=== PATIENT | female | born 1995 ===

== ENCOUNTER 2016-07-16 13:44 | Emergency (ER) | payer OTHER, SELFPAY ==
--- NOTE | 2016-07-16 14:09 | ED PDOC ---
HPI: General Adult Time Seen by Provider: 07/16/16 13:58 Chief Complaint (Nursing): Female Genitourinary Chief Complaint (Provider): vaginal spotting History Per: Patient History/Exam Limitations: no limitations Additional Complaint(s): 20yo 8 weeks female comes to the ED complaining of spotting since waking up this morning. No other complaints. No abdominal pain. PMD: [facility] Past Medical History Reviewed: Historical Data, Nursing Documentation, Vital Signs Vital Signs: Last Vital Signs Temp 98.2 F 07/16/16 17:45 Pulse 75 07/16/16 17:40 Resp 16 07/16/16 17:40 BP 122/68 07/16/16 17:40 Pulse Ox 100 07/16/16 17:40 - Medical History PMH: No Chronic Diseases - Surgical History Surgical History: No Surg Hx - Family History Family History: States: Unknown Family Hx - Allergies Allergies/Adverse Reactions: Allergies Allergy/AdvReac Type Severity Reaction Status Date / Time No Known Allergies Allergy Verified 07/16/16 13:55 Review of Systems ROS Statement: Except As Marked, All Systems Reviewed And Found Negative Gastrointestinal: Negative for: Abdominal Pain Genitourinary Female: Positive for: Vaginal Bleeding Physical Exam - Reviewed Nursing Documentation Reviewed: Yes Vital Signs Reviewed: Yes - Physical Exam Appears: Positive for: Well, Non-toxic, No Acute Distress Head Exam: Positive for: ATRAUMATIC, NORMAL INSPECTION, NORMOCEPHALIC Skin: Positive for: Warm, Dry Eye Exam: Positive for: EOMI, PERRL Cardiovascular/Chest: Positive for: Regular Rate, Rhythm Respiratory: Positive for: Normal Breath Sounds. Negative for: Rales, Rhonchi, Wheezing Gastrointestinal/Abdominal: Positive for: Normal Exam, Soft. Negative for: Tenderness Back: Negative for: L CVA Tenderness, R CVA Tenderness Extremity: Positive for: Normal ROM Neurologic/Psych: Positive for: Alert, Oriented - Laboratory Results Result Diagrams: 07/16/16 14:30 07/16/16 14:30 - ECG O2 Sat by Pulse Oximetry: 99 (RA) Pulse Ox Interpretation: Normal - CT Scan/US Pelvic ultrasound Other Rad Studies (CT/US): Radiology Report Reviewed (Live single intrauterine with estimated gestational age 8 weeks 1 day. heart rate 163 bpm. Advise an anomaly screen at 16-18 weeks gestational age.) Medical Decision Making Medical Decision Makin impression pelvic pain Plan: US OB 1st Trimester Labs reassess Disposition - Clinical Impression Clinical Impression: Threatened - Disposition [facility] Disposition: Routine/Home Disposition Time: 17:41 Condition: STABLE Instructions: Threatened Miscarriage (ED) Additional Comments - Additional Comments Additional Comments: Scribe Attestation: Documented by Jose Manuel Gorman acting as a scribe for Loretta Shabazz MD. Provider Scribe Attestation: All medical record entries made by the Scribe were at my direction and personally dictated by me. I have reviewed the chart and agree that the record accurately reflects my personal performance of the history, physical exam, medical decision making, and the department course for this patient. I have also personally directed, reviewed, and agree with the discharge instructions and disposition.
[2016-07-16 14:49] LABS: BASO % 0.6 % (0.0-2.0); EOS % 0.5 % (0.0-4.0); LYMPH # 1.7 K/uL (1.0-4.3); LYMPH % 21.1 % (20.0-40.0); MEAN CELL VOLUME 86.5 fl (81.0-99.0); MEAN CORPUSCULAR HEMOGLOBIN 28.7 pg (27.0-31.0); MEAN CORPUSCULAR HGB CONC 33.2 g/dL (33.0-37.0); MONO # 0.6 K/uL (0.0-0.8); MONO % 7.2 % (0.0-10.0); NEUT # 5.8 K/uL (1.8-7.0); NEUT % 70.6 % (50.0-75.0); RED CELL DISTRIBUTION WIDTH 14.2 % (11.5-14.5); WHITE BLOOD COUNT 8.2 K/uL (4.8-10.8)
[2016-07-16 14:54] LABS: ALB/GLOB RATIO 1.1 (1.0-2.1); ALKALINE PHOSPHATASE 58 U/L (38-126); ALT/SGPT 42 U/L (9-52); AST/SGOT 25 U/L (14-36); BILIRUBIN,TOTAL 0.3 mg/dl (0.2-1.3); BLOOD UREA NITROGEN 8 mg/dl (7-17); CALCIUM 8.9 mg/dL (8.4-10.2); CARBON DIOXIDE 23 mmol/L (22-30); CHLORIDE 103 mmol/L (98-107); GFR AFRICAN-AMERICAN > 60; GLUCOSE,RANDOM 79 mg/dL (65-105); POTASSIUM 3.9 MMOL/L (3.6-5.0); SODIUM 134 mmol/l (132-148); TOTAL PROTEIN 7.2 G/DL (6.3-8.2)
[2016-07-16 15:01] LABS: RBC URINE 3 /hpf (0-3); URINE BILIRUBIN NEGATIVE (NEGATIVE); URINE BLOOD NEGATIVE (NEGATIVE); URINE COLOR YELLOW (YELLOW); URINE GLUCOSE (UA) NEG (Normal); URINE KETONE NEGATIVE (NEGATIVE); URINE LEUKOCYTE ESTERASE NEG Leu/uL (Negative); URINE PROTEIN NEGATIVE (NEGATIVE); URINE UROBILINOGEN 0.2-1.0 mg/dL (0.2-1.0); WBC URINE 1 /hpf (0-5)
[2016-07-16 15:08] LABS: PARTIAL THROMBOPLASTIN TIME 28.2 Seconds (25.6-37.1)
--- NOTE | 2016-07-16 17:37 | US ---
Indication: Vaginal spotting Comparison: None available Technique: OB , limited. Findings: There is a single intrauterine fetus present. 4 mm yolk sac. The gestational sac measures 3.3 cm and is compatible with a gestational age of 8 weeks 2 days. The crown-rump length measures 1.6 cm and is compatible with a gestational age of 8 weeks 0 days. There is heart motion which measured 163 BPM. The right ovary measures 2.3 x 1.3 x 2.6 cm. The left ovary measures 2.8 x 1.6 x 2.4 cm and contains 1.6 x 0.9 x 1.1 cm cyst. Blood flow was demonstrated to both ovaries. Cervix length measures approximately 4.1 cm. Impression: Live single intrauterine with estimated gestational age 8 weeks 1 day. heart rate 163 bpm. Advise an anomaly screen at 16-18 weeks gestational age
[2016-07-16 17:51] VITALS: BP 122/68; PULSE 75; RESP 16; TEMP 98.2
[2016-07-17 20:09] VITALS: O2SAT 99
== END 2016-07-16 17:48 | disposition home or self-care (01) ==
LOC: H.ER 13:44
DX: O20.0 Threatened abortion (principal); Z3A.08 8 weeks gestation of pregnancy

== ENCOUNTER 2016-09-29 10:39 | Emergency (ER) | payer MEDICAID ==
[2016-09-29 11:25] VITALS: BMI 35.6
--- NOTE | 2016-09-29 15:08 | US ---
PROCEDURE: OB ultrasound dated 09/29/2016 HISTORY: 19w ?SROM. COMPARISON: Correlation made with prior study 07/16/2016. FINDINGS: The current study reveals a single living intrauterine gestation in cephalic presentation. Placenta is anteriorly located free of the cervical os. Cervix measures 5.3 cm and appears closed. Measurements: HR:140 BPM BPD: 4.35 cm = 19 weeks 1 day HC: 16.59 cm = 19 weeks 2 days AC: 13.85 cm = 19 weeks 2 days FL: 3.1 cm = 19 weeks 4 days Average ultrasound age = 19 weeks 2 days +/-1 week 2 days GLO based on not average ultrasound age equals 02/21/2017 EFW = 290.65g +/- 43.60g Note that on dedicated anatomy survey not performed at this time. If further evaluation of anatomy is rule CT required, level 2 ultrasound recommended. Neither adnexa visualized. No gross free fluid seen in the cul de sac. Impression: Single living intrauterine gestation in cephalic presentation. Average ultrasound age estimated 19 weeks 2 days +/-1 week 2 days. . Placenta is anteriorly located, free of the cervical os. The cervix appears closed
[2016-09-29 15:11] LABS: URINE BILIRUBIN NEGATIVE (NEGATIVE); URINE BLOOD NEGATIVE (NEGATIVE); URINE COLOR YELLOW (YELLOW); URINE GLUCOSE (UA) NEG (Normal); URINE KETONE TRACE mg/dL (NEGATIVE); URINE LEUKOCYTE ESTERASE NEG Leu/uL (Negative); URINE PROTEIN NEGATIVE (NEGATIVE); URINE UROBILINOGEN 0.2-1.0 mg/dL (0.2-1.0)
--- NOTE | 2016-09-29 16:39 | OBHP ---
Datetime: 09/29/2016 16:02 IP Admit Plan: Observation/Evaluation Admit Comment, IP Provider: Pt was reassesed. No complaints. Headache resolved. -U/S single IUP, placenta is intact, cervix is closed. -UA is negative. Pt given Flagyl 500Mg for BV. -Pt feels well to go home, has follow up apt with MD on Oct 10, 2016. PTL precautions given. EGA AdmitDate IP: 19.1 IP Chief Complaint: Suspected ruptured membranes Datetime: 09/29/2016 11:39 IP Adm Impression: , intrauterine ; No Active Labor; Intact Membranes Pelvic Type - PN: Adequate Extremities - PN: Normal Abdomen - PN: Normal Back - PN: Normal Thyroid - PN: Normal Neurologic - PN: Normal HEENT - PN: Normal General - PN: Normal FHR - Baseline A Provider: + Comments, ACOG Physical Exam: ROS: General: no weakness; no fatigue HEENT: no COHEN; no visual dist CV: no palpitations; no no CP GI: no N/V no diarrhea No epigastric pain; non radiating : no F/U/D MS: No joint pain Pool Provider: Negative Ferning Provider: Negative IP Hx Assessment: The History has been Reviewed and is Current Vital Signs Provider: Reviewed Dilatation, Provider: 0 Genitourinary Exam: Normal DTRs - PN: Normal
--- NOTE | 2016-09-29 16:42 | OBDCSUM ---
Datetime: 09/29/2016 15:32 Discharged to, Provider: Home Follow up at, Provider: [facility] Disch Instr Activity: Normal activity Disch Instr Diet: Regular Discharge Time: 09/29/2016 15:33 Follow up in weeks, Provider: 10/10/2016 Disch Referrals: None Disch Activity Restrictions: No sexual activity; Nothing in vagina - Elbe, tampons, douche Discharge Comment, Provider: Pt feels well to go home, has follow up apt with MD on Oct 10, 2016. PT L precautions given. Discharge Diagnosis Prov Other: No evidence of rupture membranes Bacterial vaginitis
[2016-09-29 20:07] VITALS: BP 139/78; PULSE 56; RESP 18; TEMP 98; O2SAT 100
== END 2016-09-29 15:33 | disposition home or self-care (01) ==
LOC: H.EROB2 10:39 → H.L&D 11:02 → H.EROB2 15:33
DX: O47.03 False labor before 37 completed weeks of gestation, third trimester (principal); Z3A.19 19 weeks gestation of pregnancy

== ENCOUNTER 2016-11-19 20:34 | Emergency (ER) | payer OTHER ==
--- NOTE | 2016-11-19 21:56 | OBDCSUM ---
Datetime: 11/19/2016 21:25 Discharged to, Provider: Home Follow up at, Provider: [facility] Disch Instr Activity: Normal activity Disch Instr Diet: Regular Discharge Time: 11/19/2016 21:26 Follow up in weeks, Provider: 11/22/2016 Disch Referrals: None Disch Activity Restrictions: No lifting Discharge Diagnosis Prov Other: acid reflux
--- NOTE | 2016-11-19 21:56 | OBHP ---
Datetime: 11/19/2016 21:21 IP Adm Impression: , intrauterine IP Admit Plan: Discharge home Admit Comment, IP Provider: 20 yo F at 26.3w confirmed by u/s done at 8w presented to [facility] with epigastric discomfort and abdominal cramps. Pt reports that around 5-6 pm, she ate some fruit and th en felt "fire" in the epigastric region. Epigastric symptoms have since resolved; she still feels gregor e sporadic abdominal cramps. Denies loss of fluid, vaginal bleeding, regular contractions. Feels movements. Last sexual a ctivity yesterday. OBHx: . Medications: labetolol 100mg twice daily for htn. Denies other medical, surgical or obgyn history. Social hx: denies tobacco, alcohol, drug use. Allergies: NKDA Pre- care: [facility] Last visit 11/14. Next visit 11/22. ROS: denies chest pain, shortness of breath, nausea or vomiting, dizziness, headaches, or burning with urination. PE: BP: 137/76, HR 79 FHR: 140s General: AAOx3, no acute distress CV: S1/S2. Regular rate and rhythm Resp: lungs clear to auscultation bilaterally. Normal respiratory effort. Abd: gravid, +BS. Back: no CVA tenderness Extremities: no pain on palpation, no edema. Assessment: 20 yo at 26.3 weeks gestation. Not in labor. Symptoms that have since resolved were likely du e to acid reflux. Plan: Discharge to home. Labor precautions given, and patient encouraged to attend next scheduled appoin tment with provider at [facility]. [email or web address] Addendum by Dr. Bonilla: Patient evaluated independently and I agree with the above. Pt is a @ 26.3 wks with Chronic HTN on Labetalol 100mg PO BID, for evaluation for epigastric discomfort and abd ominal tightening. Patient deneis VB, leaking, +FM and in hospital all symptoms resolved. Patient rep orts after eating fruit, epigastric discomfort started, denies N/V, COHEN. BP on presentation is 130s/70 s. Patient did not take PO Labetalol today. FHR reassuring in 140s mod daxa and no contractions on mon itor. No physical findings on exam. Differential dx is acid reflux brought on by eating fruit - advis ed patient that is an acidic food. No signs of labor or /maternal distress. Stressed to patient importance of compliance with her hypertensive medication and pt to take when she got home. F/U in cl inic this week Extremities - PN: Normal Abdomen - PN: Normal Back - PN: Normal Breast - PN: Not Done Lungs - PN: Normal Heart - PN: Normal Thyroid - PN: Not Done Neurologic - PN: Normal HEENT - PN: Normal General - PN: Normal FHR - Baseline A Provider: 140 Gestation - Est Wks by US: 26.3 EGA AdmitDate IP: 26.3 Vital Signs Provider: Reviewed; Within Normal Limits IP Chief Complaint: Maternal discomfort NICHD Variability Prov Fetus A: Moderate 6-25bpm DTRs - PN: Not Done
[2016-11-20 02:08] VITALS: BP 137/76; PULSE 76
== END 2016-11-19 21:30 | disposition home or self-care (01) ==
LOC: H.EROB2 20:34
DX: O47.02 False labor before 37 completed weeks of gestation, second trimester (principal); Z3A.25 25 weeks gestation of pregnancy

== ENCOUNTER 2017-01-30 16:10 | Emergency (ER) | payer MEDICAID, SELFPAY ==
[2017-01-30 17:33] VITALS: BMI 40.7
[2017-01-30 18:19] LABS: HEMATOCRIT 35.1 % (34.0-47.0); MEAN CELL VOLUME 85.6 fl (81.0-99.0); MEAN CORPUSCULAR HEMOGLOBIN 27.4 pg (27.0-31.0); RED CELL DISTRIBUTION WIDTH 13.6 % (11.5-14.5)
[2017-01-30 18:30] LABS: ALKALINE PHOSPHATASE 155 U/L (38-126); ALT/SGPT 42 U/L (9-52); AST/SGOT 26 U/L (14-36); BILIRUBIN,TOTAL 0.4 mg/dl (0.2-1.3); BLOOD UREA NITROGEN 5 mg/dl (7-17); CARBON DIOXIDE 21 mmol/L (22-30); CHLORIDE 106 mmol/L (98-107); GFR AFRICAN-AMERICAN > 60; GLUCOSE,RANDOM 114 mg/dL (65-105); POTASSIUM 3.8 MMOL/L (3.6-5.0); SODIUM 136 mmol/l (132-148); TOTAL PROTEIN 6.9 G/DL (6.3-8.2)
[2017-01-30 19:08] LABS: RBC URINE 3 /hpf (0-3); URINE BACTERIA MOD (<OCC); URINE BILIRUBIN NEGATIVE (NEGATIVE); URINE BLOOD NEGATIVE (NEGATIVE); URINE COLOR STRAW (YELLOW); URINE GLUCOSE (UA) NEG (Normal); URINE KETONE TRACE mg/dL (NEGATIVE); URINE LEUKOCYTE ESTERASE MOD Leu/uL (Negative); URINE PROTEIN NEGATIVE (NEGATIVE); URINE UROBILINOGEN 0.2-1.0 mg/dL (0.2-1.0); WBC URINE 11 /hpf (0-5)
[2017-01-31 00:10] VITALS: BP 138/71; PULSE 86; RESP 18; TEMP 98.3; O2SAT 100
== END 2017-01-30 20:08 | disposition home or self-care (01) ==
LOC: H.EROB2 16:10
DX: O24.419 Gestational diabetes mellitus in pregnancy, unspecified control (principal); O36.8130 Decreased fetal movements, third trimester, not applicable or unspecified; Z3A.36 36 weeks gestation of pregnancy

== ENCOUNTER 2017-01-31 12:59 | Emergency (ER) | payer MEDICAID ==
[2017-01-31 13:03] VITALS: BMI 39.4
--- NOTE | 2017-01-31 14:38 | OBHP ---
Datetime: 01/31/2017 14:32 IP Adm Impression: , intrauterine ; No Active Labor; Intact Membranes IP Admit Plan: Discharge home Admit Comment, IP Provider: 21 yo at 36.5 weeks GA based on LMP 05/18/16, c/w first trimester US, EDC 02/22/[address] Charles for decreased FM since this morning. Onl ate at 8am. No SROM. no VB. Since being placed on motior and given [o fluids she felt +FM . Denies LOF, CTX or VB. Reports mild swelling of legs for past few weeks. Denies headache, dizzin ess, blurry vision or epigastric pain. PNC: [facility]. Dr. Charles. last visit today PRENTALCHART REVD PNL: B+, ab neg, RPR neg, HIV neg, rubella immune, GBS neg, gc/c neg US on 01/02/17: cephalic presentation, KASH 15.8, wt: 5 lbs 6 oz past obhx: G1 past gynhx: denies hx STI. pmhx: chronic HTN, vit D deficiency pshx: denies social hx: denies smoking cigarettes, ETOH or recreatioal drug use. family hx: denies family hx CAD or CA Medications: labetalol 100 mg po BID, aspirin 81 mg daily, pnv allergies: NKDA Assessment: 21 yo G1PO IUP @36+w chronic HTN PLAN: Bpp 09/18 KASH 14cm She feel +FM...will dischage home and folo wup next tues as scheduled. Pre-eclampsia warning Pelvic Type - PN: Not Done Extremities - PN: Normal Abdomen - PN: Normal Back - PN: Normal Breast - PN: Not Done Lungs - PN: Normal Heart - PN: Normal Thyroid - PN: Normal Neurologic - PN: Normal HEENT - PN: Normal General - PN: Normal Pool Provider: Negative IP Hx Assessment: The History has been Reviewed and is Current EGA AdmitDate IP: 36.6 IP Chief Complaint: Decreased movement FHR Category Provider Fetus A: Category I Genitourinary Exam: Normal DTRs - PN: Normal Datetime: 01/30/2017 17:06 IP Chief Complaint Other: elevated BP FHR - Baseline A Provider: 130s Comments, ACOG Physical Exam: 2+ edema of lower extremities. Vital Signs Provider: Reviewed NICHD Variability Prov Fetus A: Moderate 6-25bpm NICHD Accel Fetus A IP Provider: 15X15 NICHD Decel Fetus A IP Provider: None
--- NOTE | 2017-01-31 14:38 | OBDCSUM ---
Datetime: 01/31/2017 14:36 Discharged to, Provider: Home Follow up at, Provider: Dr Charles Disch Instr Activity: Normal activity Disch Instr Diet: Regular Discharge Instructions, Provider: Routine instructions given Discharge Time: 01/31/2017 14:50 Follow up in weeks, Provider: Feb 05 Disch Referrals: None Contraception discussed, Prov: Yes Discharge Comment, Provider: pre-eclampsia warning Discharge Diagnosis Prov Other: Decreased movement...now +FM; chronic HTN
--- NOTE | 2017-01-31 14:45 | US ---
PROCEDURE: BIOPHYSICAL PROFILE HISTORY: decreased movement COMPARISON: None available. FINDINGS: A biophysical profile was performed for evaluation of clinically reported decreased movement. An advanced intrauterine is identified in cephalic presentation is been identified with anterior fundal placenta. No definite placental abruption or previa is appreciable. cardiac activity is recorded recorded to 133 BPM. Following BPP scoring acquired: breathing movements - 2. movements - 2 Tone - 2 Amniotic fluid - 2 Total BPP score: 8/8 KASH = 14.94 OTHER FINDINGS: None. IMPRESSION: BPP = 8/8 as described above. Findings suggested with Dr. Lynch, 01/31/2017.
[2017-02-01 20:35] VITALS: BP 128/78; PULSE 68; RESP 18; TEMP 98.2; O2SAT 99
== END 2017-01-31 14:36 | disposition home or self-care (01) ==
LOC: H.EROB2 12:59
DX: O36.8131 Decreased fetal movements, third trimester, fetus 1 (principal); O26.93 Pregnancy related conditions, unspecified, third trimester; I10 Essential (primary) hypertension; Z3A.36 36 weeks gestation of pregnancy; M79.89 Other specified soft tissue disorders

== ENCOUNTER 2017-02-08 08:24 | Inpatient (IN) | payer MEDICAID, SELFPAY ==
[2017-02-09 21:32] VITALS: BMI 40.1
--- NOTE | 2017-02-09 22:25 | OBADHP ---
Datetime: 02/09/2017 21:57 Admit Comment, IP Provider: 21 yo at38.1 weeks GA based on LMP 05/18/16, c/w first trimester US, EDC 02/22/2017 admitted for induction 2ndary to gestational hypertension. She denies h/a, scotomata, ruq pain, blurred va, or n/v. report good fm. denies srom/ctxs/vb. . PNC: [facility]. Dr. Charles. last visit today PRENTALCHART REVD PNL: B+, ab neg, RPR neg, HIV neg, rubella immune, GBS neg, gc/c neg past obhx: G1 past gynhx: denies hx STI. pmhx: chronic HTN, vit D deficiency pshx: denies social hx: denies smoking cigarettes, ETOH or recreatioal drug use. family hx: denies family hx CAD or CA Medications: labetalol 100 mg po BID, aspirin 81 mg daily, pnv allergies: NKDA I: 38.1wks gestational htn obesity in preg p: cervidel plan of induction d/w pt. 24hr urine pih labs Pelvic Type - PN: Adequate Extremities - PN: Normal Abdomen - PN: Normal Back - PN: Normal Lungs - PN: Normal Heart - PN: Normal Neurologic - PN: Normal HEENT - PN: Normal General - PN: Normal Presentation-Admit: Vertex FHR - Baseline A Provider: 130 Membranes, Provider: Intact Contraction Comments Provider: no Vital Signs Provider: Reviewed NICHD Variability Prov Fetus A: Moderate 6-25bpm NICHD Accel Fetus A IP Provider: 15X15 FHR Category Provider Fetus A: Category I NICHD Decel Fetus A IP Provider: None Dilatation, Provider: 0 Effacement, Provider: 0 Station, Provider: 0 Genitourinary Exam: Normal Datetime: 01/31/2017 14:32 Breast - PN: Not Done Thyroid - PN: Normal Pool Provider: Negative IP Hx Assessment: The History has been Reviewed and is Current IP Chief Complaint: Decreased movement DTRs - PN: Normal EGA AdmitDate IP: 36.6 IP Adm Impression: , intrauterine ; No Active Labor; Intact Membranes IP Admit Plan: Discharge home Datetime: 01/30/2017 17:06 IP Chief Complaint Other: elevated BP Comments, ACOG Physical Exam: 2+ edema of lower extremities. Datetime: 11/19/2016 21:21 Gestation - Est Wks by US: 26.3 Datetime: 09/29/2016 11:39 Ferning Provider: Negative
[2017-02-09 22:52] LABS: BASO # 0.1 K/uL (0.0-0.2); BASO % 1.2 % (0.0-2.0); EOS % 0.2 % (0.0-4.0); HEMOGLOBIN 10.9 g/dL (12.0-16.0); LYMPH # 1.7 K/uL (1.0-4.3); LYMPH % 19.7 % (20.0-40.0); MEAN CORPUSCULAR HEMOGLOBIN 27.2 pg (27.0-31.0); MEAN PLATELET VOLUME 11.3 fl (7.2-11.7); MONO # 0.6 K/uL (0.0-0.8); MONO % 7.4 % (0.0-10.0); NEUT # 6.2 K/uL (1.8-7.0); NEUT % 71.5 % (50.0-75.0); RED CELL DISTRIBUTION WIDTH 13.4 % (11.5-14.5); WHITE BLOOD COUNT 8.7 K/uL (4.8-10.8)
[2017-02-09 22:58] LABS: ALBUMIN 3.3 g/dL (3.5-5.0); ALT/SGPT 44 U/L (9-52); AST/SGOT 27 U/L (14-36); BLOOD UREA NITROGEN 12 mg/dl (7-17); CALCIUM 9.1 mg/dL (8.4-10.2); GFR AFRICAN-AMERICAN > 60; GFR NON-AFRICAN AMERICAN > 60
[2017-02-09 23:58] LABS: URINE 24 HOUR TOTAL PROTEIN 96.3 mg/24hr (42-225)
[2017-02-10] MEDS ORDERED: Nalbuphine 20 mg/ml Inj (1 ml) IVP PRN (05:21)
[2017-02-10] MEDS ORDERED: Nalbuphine 20 mg/ml Inj (1 ml) IVP STA (09:22)
[2017-02-10] MEDS: Lactated Ringer's 1,000 ML IV SCH (22:22)
[2017-02-11] MEDS ORDERED: Fentanyl/Bupivacaine HCl 250 ML EPI ONE (02:19)
[2017-02-11] MEDS ORDERED: Oxytocin 30 UNITS in Sodium Chloride 0.9% 500 ML IV ONE (08:43)
[2017-02-11] MEDS: Lactated Ringer's 1,000 ML IV SCH ×4 (09:38→18:31)
[2017-02-11] MEDS ORDERED: Bupivacaine HCl 0.25% PF (10 ml) Inj ONE (11:49)
[2017-02-11] MEDS ORDERED: Bupivacaine HCl 0.5% PF (30 ml) Inj ONE (14:35)
[2017-02-11] MEDS ORDERED: Lidocaine 1% Inj (20ml) ONE (16:32)
[2017-02-11] MEDS ORDERED: ceFAZolin IV 2 gm in Dextrose 2 GM/50 ML BAG IVPB ONE ×2 (17:15→17:30)
[2017-02-11] MEDS ORDERED: Lactated Ringer's 1,000 ML IV SCH ×2 (18:00→23:07)
--- NOTE | 2017-02-11 18:22 | OBPN ---
Datetime: 02/11/2017 18:16 IP Progress Impression: Arrest of dilatation/descent IP Informed Consent Obtain: Section Delivery; Risks, Benefits and Alternatives Discussed IP Procedures: Sterile Vag Exam IP Progress Plan: Deliver- Section Membranes, Provider: Intact Contraction Comments Provider: irregular FHR - Baseline A Provider: 120 IP Progress Note Comment: 21 yo G1 at 38+3 wks for induction for chronic HTN, w/ arrest of dilation Arrest of dilation discussed w/ pt and her family Discussed risks, benefits, and alternatives of primary section Will proceed w/ section Vital Signs Provider: Reviewed; Within Normal Limits NICHD Accel Fetus A IP Provider: 10X10 FHR Category Provider Fetus A: Category II NICHD Variability Prov Fetus A: Moderate 6-25bpm Dilatation, Provider: 6 Effacement, Provider: 100 Station, Provider: -3 NICHD Decel Fetus A IP Provider: None Datetime: 02/09/2017 21:57 Presentation-Admit: Vertex Datetime: 01/31/2017 14:32 Pool Provider: Negative Datetime: 11/19/2016 21:21 Gestation - Est Wks by US: 26.3 Datetime: 09/29/2016 11:39 Ferning Provider: Negative
[2017-02-11] MEDS ORDERED: Morphine 1 mg/ml preservative-free Inj(Duramorph) ONE (19:19)
[2017-02-11] MEDS ORDERED: DiphenhydrAMINE 50 mg/ml Inj IVP PRN ×2 (21:22→23:07)
--- NOTE | 2017-02-11 21:23 | OBDS ---
DELIVERY PERSONNEL Delivery Doctor: Nica Gandhi MD Scrub Nurse: Kiki Bryan OBT Die Maker: Melissa Freeman RN Anesthesiologist: Ignacio Larkin MD/ dr christie Resident: Yamil Hawkins MD MATERNAL INFORMATION Delivery Anesthesia: Spinal Medications in Delivery: oxytocin Estimated Blood Loss (ml): 700 Placenta Cultured: No Maternal Complications: None Provider Comments: Pre-op dx: 21 yo G1 at 38+ 3wks w/ failed induction of labor for chronic HTN w/ a rrest of dilation Post-op dx: Same Procedure: Primary low transverse section Surgeon: Hiram Bore Miner Operator: Dr. Jarek Hawkins, PGY-1 Anesthesiologist: Dr. Christie Anesthesia: Epidural -->Spinal Findings: Viable male infant delivered through clear fluid at 20:02. Apgars 9 and 9. Wt 3410gms, 7#8. NL appearing uterus, tubes, and ovaries. EBL: 700 mL Complications: None LABOR SUMMARY EDC: 02/22/2017 00:00 No. Babies in Womb: 1 Attempted: No Labor Anesthesia: Epidural LABOR INFORMATION Reason for Induction: Chronic Hypertension Onset of Labor: 02/11/2017 17:06 Cervical Ripening Agents: Cervidil; Cytotec @ Oxytocin: Induction Group B Beta Strep: Negative Steroids Given: None Reason Steroids Not Administered: Not Applicable MEMBRANES Membranes Rupture Method: Spontaneous Rupture of Membranes: 02/11/2017 01:15 Length of Rupture (hrs): 18.78 Amniotic Fluid Color: Clear Amniotic Fluid Amount: Small Amniotic Fluid Odor: Normal STAGES OF LABOR Stage 3 hrs: 0 Stage 3 min: 1 Total Time in Labor hrs: 2 Total Time in Labor min: 57 CSECTION DELIVERY Primary Indication: Secondary Arrest of Dilatation CSection Urgency: Non Elective CSection Incidence: Primary Labor: Labor Elective: Nonelective CSection Incision: Lower Uterine Transverse BABY A INFORMATION Delivery Date/Time: 02/11/2017 20:02 Method of Delivery: Born in Route : No : N/A Forceps: N/A Vacuum Extraction: N/A Shoulder Dystocia : No SHOULDER DYSTOCIA BABY A Infant Delivery Date/Time: 02/11/2017 20:02 PRESENTATION/POSITION BABY A Presentation: Cephalic Cephalic Presentation: Vertex Breech Presentation: N/A PLACENTA INFORMATION BABY A Placenta Delivery Time : 02/11/2017 20:03 Placenta Method of Delivery: Manual Removal Placenta Status: Delivered SCORES BABY A Heart Rate 1 min: >100 bpm Resp Effort 1 min: Good Cry Reflex Irritability 1 min: Cough or Sneeze or Pulls Away Muscle Tone 1 min: Active Motion Color 1 min: Body Merino, Extremities Blue SCORE 1 MIN: 9 Heart Rate 5 min: >100 bpm Resp Effort 5 min: Good Cry Reflex Irritability 5 min: Cough or Sneeze or Pulls Away Muscle Tone 5 min: Active Motion Color 5 min: Body Merino, Extremities Blue SCORE 5 MIN: 9 INFORMATION BABY A Gestational Age at Delivery: 38.3 Gestational Status: Term Infant Outcome : Liveborn Condition : Stable Infant Sex: Male IDENTIFICATION/MEDS BABY A ID Band Number: [id number] ID Band Location: Left Leg; Left Arm WEIGHT/LENGTH BABY A Infant Birthweight (gms): 3410 Weight (lb): 7 Infant Weight (oz): 8 CORD INFORMATION BABY A No. Cord Vessels: 3 Nuchal Cord : N/A Cord Blood Taken: Yes Infant Suction: Mouth
--- NOTE | 2017-02-11 22:32 | OP ---
PROCEDURE DATE: 02/11/2017 PREOPERATIVE DIAGNOSES: This is a 21-year-old 1 at 38 weeks and 3 days with a failed induction of labor for chronic hypertension with arrest of dilation. POSTOPERATIVE DIAGNOSES: This is a 21-year-old 1 at 38 weeks and 3 days with a failed induction of labor for chronic hypertension with arrest of dilation. PROCEDURE: Primary low-transverse section. SURGEON: Ghislaine Gandhi MD. SITE IDENTIFICATION SPECIALIST: Jarek Hawkins PGY1 ANESTHESIA ADMINISTERED BY: Vinicius Mendoza DO. TYPE OF ANESTHESIA: An epidural converted to a spinal. FINDINGS: Viable male infant, delivered through clear fluid at 2001. 's 9 and 9 at 1 and 5 minutes respectively. The weight was 3410 g or 7 pounds 8 ounces. Normal-appearing uterus, tubes, and ovaries. ESTIMATED BLOOD LOSS: 700 mL. COMPLICATIONS: None. DESCRIPTION OF PROCEDURE: The patient was taken to the operating room and her epidural anesthesia was removed and a spinal was placed. She was prepped and draped in the normal sterile fashion in the dorsal supine position with a leftward tilt. A time-out had been done. The spinal was tested and found to be adequate. A Pfannenstiel skin incision was then made with the scalpel and carried through to the underlying layer of fascia with the Bovie. The fascia was incised in the midline and the incision was extended laterally with the Cote scissors. The inferior aspect of the fascial incision was then grasped with Monique clamps, elevated, and the underlying rectus muscles were dissected off bluntly and with the Bovie. Attention was then turned to the superior aspect of this incision, which in a similar fashion, was grasped, tented up with Monique clamps, and rectus muscles were dissected off bluntly and with the Bovie. The left rectus muscle started bleeding and this was controlled with a single interrupted suture of 0 Vicryl. The rectus muscles were then in the midline. The peritoneum was identified, tented up, and entered digitally. The peritoneal incision was then extended superiorly and inferiorly with good visualization of bladder. Bladder blade was then inserted. The vesicouterine peritoneum was identified, grasped with pickups, and entered sharply with Metzenbaum scissors. The incision was then extended laterally and the bladder flap was created digitally. The bladder blade was reinserted and low uterine segment was incised in transverse fashion with the scalp. The uterine incision was then extended laterally digitally. The bladder blade was removed and the infant's head delivered atraumatically. The nose and mouth were suctioned with bulb suction. The cord was clamped and cut. The infant was handed off to the waiting automobile upholsterer. Cord blood was collected. The placenta was then delivered as the uterus was massaged. The uterus was then exteriorized and cleared of all clots and debris with dry sponge curettage. The uterine incision was repaired with 0 Vicryl in a running locked fashion. A second layer of the same suture was used in an imbricating fashion for hemostasis and to reinforce the incision. The abdomen was then well irrigated. The uterus was returned to the abdomen. The gutters were cleared of all clots. The peritoneum was then closed with 0 chromic. A single stitch of 0 chromic was used to reapproximate the pyramidalis muscles and then 2 interrupted stitches 2-0 chromic were placed to reapproximate the rectus muscle. The fascia was reapproximated with 0 Vicryl in a running fashion. Subcutaneous fat was well irrigated. The Bovie was applied to small bleeders. The space of the fat was closed with a running stitch of 2-0 plain gut. The skin was then closed with 4-0 Monocryl in a subcuticular fashion. The patient tolerated the procedure well. Sponge, lap, and needle counts were correct. The patient had received 2 g of Ancef prior to the procedure. The patient was taken to recovery room in stable condition. Ghislaine Gandhi MD CARITO
[2017-02-12 06:13] LABS: HEMOGLOBIN 9.2 g/dL (12.0-16.0); MEAN CORPUSCULAR HEMOGLOBIN 27.7 pg (27.0-31.0); RBC 3.32 Mil/uL (3.80-5.20); RED CELL DISTRIBUTION WIDTH 13.9 % (11.5-14.5)
[2017-02-12] MEDS ORDERED: Oxycodone/Acetaminophen 5/325 mg Tab PO PRN ×2 (19:07→19:08)
--- NOTE | 2017-02-13 07:13 | OBPPN ---
Datetime: 02/12/2017 08:15 PP Pain Prov: Within normal limits PP Nausea Prov: Denies PP Flatus Prov: No PP BM Prov: No PP Breasts Prov: Not Done PP Heart Prov: Normal PP Lungs Prov: Normal PP Abdomen/Uterus Prov: Normal PP Lochia Prov: Normal PP Vulva/Perineum Prov: Not Done PP CVA Tenderness Prov: Normal PP Extremities Prov: Normal PP C/S Incision Prov: Normal PP Progress Prov: Normal PP Impression Prov: Normal progression PP Plan Prov: Continue present management PP Progress Note Prov: POD 1 S: 21 yo s/p on 02/11/17. Pt. is seen and examined at bedside this AM. No overni ght events. Pt reports mild abdominal pain, but well controlled with pain meds. D/c dunlap, dressing t o be removed at 20:00. No nausea, advised to advance diet as tolerated. Breast feeding without diffic ulty. Lochia is similar to menses volume. No bowel movement, but passing gas per rectum. Denies fever /chills, diarrhea, nausea/vomiting, chest pain, dyspnea, and dizziness. VS: stable GEN: NAD Cardio: S1S2, no M/G/R Lungs: clear breath sounds b/l, no wheezing Abdomen: BS+, tenderness to palpation. Incision scar to be examined at 20:00. Uterus is firm and a t the level of the umbilicus. EXT: calves nontender NEURO/PSYCH: AAOx3, no grossly focal deficits, preserved affect and mood. Assessment/Plan: 21 yo s/p on 02/11/17. Pt remains afebrile, tolerating pain wit h medication, doing well on POD#1. OOB with caution SCDs for DVT prophylaxis, encouraged ambulating Percocet 5/325mg, and Motrin 600mg for pain. Colace 100mg PO BID/Senokot 17.2 mg for constipation Encourage and ambulating f/u CBC post op, pending Anticipated d/c to home, 02/14/2017. --- Jarek Hawkins MD PGY-1 Late entry for Feb 12 9:00pm- OB Hospitalist note. Pt seen on rounds . Agree with note ZACKARY VASQUEZ PP Procedures: None Vital Signs Provider PP: Reviewed; Within Normal Limits Vital Signs Provider Details PP: will examin incision when bandage is removed at 20:00
--- NOTE | 2017-02-13 11:58 | OBPPN ---
Datetime: 02/13/2017 07:30 PP Pain Prov: Within normal limits PP Nausea Prov: Denies PP Flatus Prov: Yes PP BM Prov: No PP Breasts Prov: Not Done PP Heart Prov: Normal PP Lungs Prov: Normal PP Abdomen/Uterus Prov: Normal PP Lochia Prov: Normal PP Vulva/Perineum Prov: Not Done PP CVA Tenderness Prov: Normal PP Extremities Prov: Normal PP C/S Incision Prov: Normal PP Progress Prov: Normal PP Impression Prov: Normal progression PP Plan Prov: Continue present management PP Progress Note Prov: POD 2 S: 21 yo s/p on 02/11/17. Pt. is seen and examined at bedside this AM. No overni ght events. Pt reports mild abdominal pain, but well controlled with pain meds. D/c dunlap, dressing r emoved, incision site healing well, no exudate seen, dry and intact. No nausea, advised to advance d iet as tolerated. Breast feeding without difficulty. Lochia is similar to menses volume. No bowel mov ement, but passing gas per rectum. Denies fever/chills, diarrhea, nausea/vomiting, chest pain, dyspne a, and dizziness. VS: stable GEN: NAD Cardio: S1S2, no M/G/R Lungs: clear breath sounds b/l, no wheezing Abdomen: BS+, tenderness to palpation. Incision scar noted, well healing with no exudate seen, dry and intact. Uterus is firm and at the level of the umbilicus. EXT: calves nontender NEURO/PSYCH: AAOx3, no grossly focal deficits, preserved affect and mood. Assessment/Plan: 21 yo s/p on 02/11/17. Pt remains afebrile, tolerating pain wit h medication, doing well on POD#2. OOB with caution SCDs for DVT prophylaxis, encouraged ambulating Percocet 5/325mg, and Motrin 600mg for pain. Colace 100mg PO BID/Senokot 17.2 mg for constipation Encourage and ambulating f/u CBC post op, 9.2/27.9 prescribed FeSO4 Anticipated d/c to home, 02/14/2017. --- Jarek Hawkins MD PGY-1 The patient was seen with the resident and I agree with the notes IP PP Procedures: None Vital Signs Provider PP: Reviewed; Within Normal Limits
[2017-02-14 06:06] LABS: HEMOGLOBIN 9.2 g/dL (12.0-16.0); MEAN CELL VOLUME 84.6 fl (81.0-99.0); MEAN CORPUSCULAR HEMOGLOBIN 27.3 pg (27.0-31.0); MEAN CORPUSCULAR HGB CONC 32.3 g/dL (33.0-37.0); RBC 3.38 Mil/uL (3.80-5.20); RED CELL DISTRIBUTION WIDTH 13.7 % (11.5-14.5); WHITE BLOOD COUNT 15.7 K/uL (4.8-10.8)
[2017-02-14 06:22] LABS: ALB/GLOB RATIO 0.9 (1.0-2.1); ALT/SGPT 58 U/L (9-52); AST/SGOT 39 U/L (14-36); BLOOD UREA NITROGEN 8 mg/dl (7-17); CALCIUM 8.4 mg/dL (8.4-10.2); GFR AFRICAN-AMERICAN > 60; GFR NON-AFRICAN AMERICAN > 60
[2017-02-14 16:51] VITALS: BP 119/70; PULSE 87; RESP 20; TEMP 97.6; O2SAT 98
== END 2017-02-14 12:25 | disposition home or self-care (01) | DRG 766 ==
LOC: H.L&D 02-09 22:08 → H.OB/GYN 02-11 23:30
PROVIDERS: ADMIT Obstetrics & Gynecology; ATTEND Obstetrics & Gynecology
PROC: 4A1HXCZ Monitoring of Products of Conception, Cardiac Rate, External Approach (ICD-10-PCS; 2017-02-09)
PROC: 10D00Z1 Extraction of Products of Conception, Low, Open Approach (ICD-10-PCS; principal; 2017-02-11)
PROC: 3E033VJ Introduction of Other Hormone into Peripheral Vein, Percutaneous Approach (ICD-10-PCS; 2017-02-11)
DX: O13.3 Gestational [pregnancy-induced] hypertension without significant proteinuria, third trimester (principal); O61.9 Failed induction of labor, unspecified; O36.8130 Decreased fetal movements, third trimester, not applicable or unspecified; O62.0 Primary inadequate contractions; O62.1 Secondary uterine inertia; O99.214 Obesity complicating childbirth; Z3A.38 38 weeks gestation of pregnancy; Z37.0 Single live birth

== ENCOUNTER 2017-06-11 12:49 | Emergency (ER) | payer OTHER ==
[2017-06-11 12:49] VITALS: BMI 40.1
--- NOTE | 2017-06-11 13:45 | ED PDOC ---
Lower Extremity Pain/Injury Time Seen by Provider: 06/11/17 13:00 Chief Complaint (Nursing): Lower Extremity Problem/Injury Chief Complaint (Provider): Lower Extremity Problem/Injury History Per: Patient History/Exam Limitations: no limitations Onset/Duration Of Symptoms: Days (x7) Current Symptoms Are (Timing): Still Present Additional Complaint(s): Kirsten Saeed is a 21 year old female with a past medical history of hypertension who is presenting to the ED for evaluation of pain and an ingrown toenail to left great toe, onset 1 week ago. Patient denies any numbness, tingling, fever, or decrease in range of motion. She offers no other medical complaints at this time. PMD: Doctor, Nori Past Medical History Reviewed: Historical Data, Nursing Documentation, Vital Signs - Medical History PMH: HTN Denies: Depression, Diabetes - Surgical History Surgical History: No Surg Hx - Family History Family History: States: Unknown Family Hx - Social History Current smoker - smoking cessation education provided: No Alcohol: None Drugs: Denies - Home Medications Home Medications: Ambulatory Orders Medication Instructions Recorded Multivit/Folic Acid/I 1 tab PO DAILY 09/29/16 [] Ferrous Sulfate 325 mg PO DAILY #30 tablet 02/14/17 Ibuprofen [Motrin Tab] 600 mg PO Q4H PRN #4 tab 02/14/17 oxyCODONE/Acetaminophen [Percocet 1 tab PO Q6 PRN #20 tab 02/14/17 5/325 mg Tab] Cephalexin [Keflex] 500 mg PO BID #14 capsule 06/11/17 - Allergies Allergies/Adverse Reactions: Allergies Allergy/AdvReac Type Severity Reaction Status Date / Time No Known Allergies Allergy Verified 02/09/17 21:31 Review of Systems ROS Statement: Except As Marked, All Systems Reviewed And Found Negative Constitutional: Negative for: Fever Musculoskeletal: Positive for: Foot Pain (left toe). Negative for: Other ( decrease in range of motion ) Neurological: Negative for: Numbness, Other (tingling ) Physical Exam - Reviewed Nursing Documentation Reviewed: Yes Vital Signs Reviewed: Yes - Physical Exam Appears: Positive for: Non-toxic, No Acute Distress Head Exam: Positive for: ATRAUMATIC Extremity: Positive for: Normal ROM, Other (right medial nail fold of left great toe). Negative for: Pedal Edema, Deformity, Swelling Neurologic/Psych: Positive for: Alert, Oriented. Negative for: Motor/Sensory Deficits - ECG O2 Sat by Pulse Oximetry: 99 (RA) Pulse Ox Interpretation: Normal Medical Decision Making Medical Decision Making: Provider evaluated patient in ED and recommended that patient soak her toe in warm water and if symptoms do not improve, she should consult a podiatry clinic. Provider provided a referral to a podiatry clinic. Upon provider evaluation patient is medically stable, and requires no further treatment in the ED at this time. Patient will be discharged with Rx for antibiotics. Counseling was provided and all questions were answered regarding diagnosis and need for follow up with podiatry. There is agreement to discharge plan. Return if symptoms persist or worsen. Scribe Attestation: Documented by Nani Thomas, acting as a scribe for Evelyne Becerra PA-C. Provider Scribe Attestation: All medical record entries made by the Scribe were at my direction and personally dictated by me. I have reviewed the chart and agree that the record accurately reflects my personal performance of the history, physical exam, medical decision making, and the department course for this patient. I have also personally directed, reviewed, and agree with the discharge instructions and disposition. Disposition - Clinical Impression Clinical Impression: Ingrown nail of great toe of left foot - Disposition Referrals: Podiatry Clinic [Outside] Disposition Time: 13:30 Condition: STABLE Prescriptions: Cephalexin [Keflex] 500 mg PO BID #14 capsule Instructions: Ingrown Toenail Forms: [email or web address] ([place]ian)
[2017-06-11 13:47] VITALS: BP 138/83; PULSE 77; RESP 18; TEMP 97; O2SAT 99
== END 2017-06-11 14:36 | disposition home or self-care (01) ==
LOC: H.ER 12:49
DX: L60.0 Ingrowing nail (principal); I10 Essential (primary) hypertension